=== PATIENT | female | born 1990 | race American Indian/Alaskan Native ===

== ENCOUNTER 2016-06-15 09:46 | Emergency (ER) | payer SELFPAY ==
[2016-06-15 10:04] VITALS: BP 142/97
[2016-06-15] MEDS ORDERED: VISTARIL PO ONE (10:54)
[2016-06-15] MEDS ORDERED: TYLENOL #3 PO ONE (12:16)
--- NOTE | 2016-06-15 12:55 | Emergency Department Report ---
Entered by KEILY RAMIREZ, acting as scribe for ZANDRA HOLLAND PA. ED Rash HPI - HPI Chief Complaint: Skin Rash Stated Complaint: PSORIASIS/ECZEMA FLARE UP/PAIN Duration: chronic, worsened yesterday Location: Head (scalp) Suspected Cause: Other (chronic condition, Hx of psoriasis and eczema) Rash Symptoms: Yes Itching, Yes Fever (last night, improved after Tylenol), Yes Malaise, No Facial Swelling, No Tongue/Oral Swelling, No Breathing Difficulties , No Choking Sensation, No Wheezing/Dyspnea, No Peeling, No Blistering, No Lightheaded, No Myalgias Severity: moderate Other History: 25 year old female with Hx of psoriasis and eczema presents to the ED for evaluation of rash to scalp for months that worsened yesterday after washing hair. She reports pain and open sores on scalp and notes rash is consistent with previous episodes of psoriasis exacerbation. Patient states she was previously using home remedy to wash hair that improved symptoms but ran out. Notes fever last night that improved after Tylenol, last dose was 08:30 this morning [employer]. Patient was last evaluated by a air quality instrument specialist 2 years ago ED Review of Systems ROS: Stated complaint: PSORIASIS/ECZEMA FLARE UP/PAIN Other details as noted in HPI Comment: All other systems reviewed and negative Constitutional: chills, fever ENT: other (rhinorrhea). denies: throat pain Respiratory: cough. denies: shortness of breath, wheezing Skin: rash (to scalp), lesions (open sores to scalp) ED Past Medical Hx - Past Medical History Previous Medical History?: Yes Hx Asthma: Yes Additional medical history: Psoriasis, Eczema - Surgical History Past Surgical History?: No - Social History Smoking Status: Current Every Day Smoker Substance Use Type: Alcohol, Marijuana, Prescribed - Medications Home Medications: Home Medications Medication Instructions Recorded Confirmed Last Taken Type Ibuprofen [Motrin] 800 mg PO Q8H PRN #60 tablet 08/20/14 Unknown Rx Prednisone [Prednisone 10 mg 10 mg PO .TAPER #1 tab.ds.pk 08/20/14 Unknown Rx (6-Day Pack, 21 Tabs)] Sulfamethoxazole/Trimethoprim 1 each PO BID #20 tablet 08/20/14 Unknown Rx [Bactrim Ds] traMADol [Ultram] 50 mg PO Q6HR PRN #14 tablet 08/20/14 Unknown Rx Promethazine [Phenergan TAB] 25 mg PO Q8HR PRN #10 tab 04/14/15 Unknown Rx predniSONE [Deltasone] 20 mg PO DAILY #18 tab 04/14/15 Unknown Rx Cephalexin [Keflex] 500 mg PO Q6HR #40 capsule 06/15/16 Unknown Rx hydrOXYzine PAMOATE [Vistaril] 25 mg PO Q6HR PRN #30 capsule 06/15/16 Unknown Rx traMADol [Ultram 50 MG tab] 50 mg PO Q6HR PRN #14 tablet 06/15/16 Unknown Rx Rash Exam - Exam General: Vital signs noted. No distress. Alert and acting appropriately. Right sided lymphadenopathy present. HEENT: No Periorbital Edema, No Perioral Edema, No Tongue Edema, No Uvular Edema , No Compromised Airway, No Drooling Lungs: Yes Good Air Exchange, Yes Ronchi, No Wheezes, No Stridor, No Cough, No Labored Respirations, No Retractions, No Use of Accessory Muscles Heart: Yes Regular, No Murmur Skin: Yes Other (open sores to scalp. Shiny, silvery plaques to bilateral axilla , groin, and nape of hairline) Other: Positive: Abdomen Normal, Neurologic Normal, Musculoskeletal Normal ED Course Vital Signs 06/15/16 10:01 Temperature 98.9 F Pulse Rate 84 Respiratory 20 Rate Blood Pressure 142/97 O2 Sat by Pulse 100 Oximetry - Reevaluation(s) Reevaluation #1: 06/15/16 12:52 Patient reports that she feels a little bit better after having the pain medication. Discussed the patient we will prepare her chart for discharge. Critical care attestation.: If time is entered above; I have spent that time in minutes in the direct care of this critically ill patient, excluding procedure time. ED Disposition Clinical Impression: Psoriasis, Cellulitis of head or scalp Disposition: DISCHARGED TO HOME OR SELFCARE Is pt being admited?: No Does the pt Need Aspirin: No Condition: Stable Instructions: Cellulitis (ED), Psoriasis (ED) Additional Instructions: Please take antibiotics and pain medication as prescribed. Please follow-up with the air quality instrument specialist. Prescriptions: Cephalexin [Keflex] 500 mg PO Q6HR #40 capsule hydrOXYzine PAMOATE [Vistaril] 25 mg PO Q6HR PRN #30 capsule PRN Reason: Itching traMADol [Ultram 50 MG tab] 50 mg PO Q6HR PRN #14 tablet PRN Reason: Pain Referrals: PRIMARY CARE,MD [Primary Care Provider] - 3-5 Days Forms: Work/School Release Form(ED) This documentation as recorded by the ASHLEY ndiaye REBEKAH,accurately reflects the service I personally performed and the decisions made by me,ZANDRA HOLLAND PA.
== END 2016-06-15 13:00 | disposition home or self-care (01) ==
LOC: ED 09:46
DX: L40.9 Psoriasis, unspecified (principal); L03.811 Cellulitis of head [any part, except face]; J45.909 Unspecified asthma, uncomplicated; F17.200 Nicotine dependence, unspecified, uncomplicated; F12.10 Cannabis abuse, uncomplicated; Z91.018 Allergy to other foods; Z88.6 Allergy status to analgesic agent
CPT/HCPCS: 99282; Q0177

== ENCOUNTER 2016-06-18 10:08 | Emergency (ER) | payer SELFPAY ==
[2016-06-18 13:39] LABS: Anion Gap 17 mmol/L; BUN/Creatinine Ratio 11.25; Blood Urea Nitrogen 9 mg/dL (7-17); Calcium 8.6 mg/dL (8.4-10.2); Carbon Dioxide 22 mmol/L (22-30); Chloride 107.9 mmol/L (98-107); Glucose 74 mg/dL (65-100); Potassium 3.8 mmol/L (3.6-5.0); Sodium 143 mmol/L (137-145)
[2016-06-18 13:41] LABS: Basophils % (Auto) 0.3 % (0.0-1.8); Eosinophils % (Auto) 2.4 % (0.0-4.3); Hematocrit 40.6 % (30.3-42.9); Hemoglobin 13.4 gm/dl (10.1-14.3); Mean Corpuscular HGB Conc 33 % (30-34); Mean Corpuscular Hemoglobin 30 pg (28-32); Mean Corpuscular Volume 92 fl (79-97); Platelet Count 252 K/mm3 (140-440); Red Blood Count 4.42 M/mm3 (3.65-5.03); Red Cell Distribution Width 12.9 % (13.2-15.2); White Blood Count 7.5 K/mm3 (4.5-11.0)
[2016-06-18] MEDS ORDERED: NORCO 5/325 PO ONE (14:56)
--- NOTE | 2016-06-18 15:49 | Emergency Department Report ---
Entered by KEILY RAMIREZ, acting as scribe for MILES METZGER PA. - General Chief complaint: Skin Rash Stated complaint: Open sores with drainage and associated pain to scalp Time Seen by Provider: 06/18/16 12:49 Source: patient Mode of arrival: Ambulatory Limitations: No Limitations - History of Present Illness Initial comments: 25 year old female with PMHx psoriasis presents to the ED for evaluation of open sores to scalp area and associated drainage and pain. Sores were exacerbated after washing her hair 4 days ago. She was seen in this ED 3 days ago for similar complaints and discharged with prescriptions for Cephalexin [ Keflex] 500 mg PO Q6HR #40 capsule, hydrOXYzine PAMOATE [Vistaril] 25 mg PO Q6HR PRN #30 capsule, and traMADol [Ultram 50 MG tab] 50 mg PO Q6HR PRN #14 tablet. She states she started her antibiotics yesterday. Denies fever, chills , shortness of breath, chest pain, abdominal pain, nausea and vomiting. MD complaint: other (open sores with drainage) -: unknown (chronic condition, became worse 4 days ago after washing hair) Location: head (scalp) Quality: constant Improves with: none Worsens with: palpation Context: other (chronic condition, worsened after washing hair) Associated symptoms: denies other symptoms (fever, chills, abdominal pain, nausea, and vomiting) Treatments Prior to Arrival: bandages, antibiotic (Cephalexin [Keflex] 500 mg PO ), prescription analgesic (traMADol [Ultram 50 MG tab] 50 mg PO), other (, hydrOXYzine PAMOATE [Vistaril] 25 mg PO ) - Related Data Previous Rx's Medication Instructions Recorded Last Taken Type Cephalexin [Keflex] 500 mg PO Q6HR #40 capsule 06/15/16 06/18/16 Rx hydrOXYzine PAMOATE [Vistaril] 25 mg PO Q6HR PRN #30 capsule 06/15/16 06/18/16 Rx traMADol [Ultram 50 MG tab] 50 mg PO Q6HR PRN #14 tablet 06/15/16 06/18/16 Rx Fluconazole [Diflucan TAB] 150 mg PO ONCE #8 tablet 06/18/16 Unknown Rx Sulfamethoxazole/Trimethoprim 1 each PO BID #20 tablet 06/18/16 Unknown Rx [Bactrim DS TAB] Allergies Allergy/AdvReac Type Severity Reaction Status Date / Time ibuprofen Allergy Swelling Verified 06/18/16 10:43 tomato Allergy Rash Verified 08/19/14 21:01 Abscess Boil HPI - HPI Chief Complaint: Headache Stated Complaint: HEADACHE Home Medications: Previous Rx's Medication Instructions Recorded Last Taken Type Cephalexin [Keflex] 500 mg PO Q6HR #40 capsule 06/15/16 06/18/16 Rx hydrOXYzine PAMOATE [Vistaril] 25 mg PO Q6HR PRN #30 capsule 06/15/16 06/18/16 Rx traMADol [Ultram 50 MG tab] 50 mg PO Q6HR PRN #14 tablet 06/15/16 06/18/16 Rx Fluconazole [Diflucan TAB] 150 mg PO ONCE #8 tablet 06/18/16 Unknown Rx Sulfamethoxazole/Trimethoprim 1 each PO BID #20 tablet 06/18/16 Unknown Rx [Bactrim DS TAB] Allergies/Adverse Reactions: Allergies Allergy/AdvReac Type Severity Reaction Status Date / Time ibuprofen Allergy Swelling Verified 06/18/16 10:43 tomato Allergy Rash Verified 08/19/14 21:01 ED Review of Systems Comment: All other systems reviewed and negative Constitutional: denies: chills, fever Respiratory: denies: shortness of breath Cardiovascular: denies: chest pain Gastrointestinal: denies: abdominal pain, nausea, vomiting Skin: lesions (painful open sores with drainage to scalp) Neurological: denies: headache ED Past Medical Hx - Past Medical History Previous Medical History?: Yes Hx Asthma: Yes Additional medical history: Psoriasis, Eczema - Surgical History Past Surgical History?: No - Social History Smoking Status: Current Every Day Smoker Substance Use Type: Marijuana, Prescribed - Medications Home Medications: Home Medications Medication Instructions Recorded Confirmed Last Taken Type Cephalexin [Keflex] 500 mg PO Q6HR #40 capsule 06/15/16 06/18/16 Rx hydrOXYzine PAMOATE [Vistaril] 25 mg PO Q6HR PRN #30 capsule 06/15/16 06/18/16 Rx traMADol [Ultram 50 MG tab] 50 mg PO Q6HR PRN #14 tablet 06/15/16 06/18/16 Rx Fluconazole [Diflucan TAB] 150 mg PO ONCE #8 tablet 06/18/16 Unknown Rx Sulfamethoxazole/Trimethoprim 1 each PO BID #20 tablet 06/18/16 Unknown Rx [Bactrim DS TAB] ED Physical Exam - General Limitations: No Limitations General appearance: other (: The patient is well-developed and well-nourished. Patient is in NAD. ) - Head Head exam: Present: other (encrusted scalp skin with yellow drainage. Scalp is tender to palpation.) - Neck Neck exam: Present: lymphadenopathy (right anterior cervical lymphadenopathy with tenderness) - Respiratory Respiratory exam: Present: normal lung sounds bilaterally. Absent: respiratory distress, wheezes, rales, rhonchi, chest wall tenderness - Cardiovascular Cardiovascular Exam: Present: regular rate, normal rhythm, normal heart sounds. Absent: systolic murmur, diastolic murmur, rubs, gallop - GI/Abdominal GI/Abdominal exam: Present: soft. Absent: distended, tenderness, guarding, rebound - Skin Skin exam: Present: other (encrusted scalp skin with yellow discharge. Scalp is tender to palpation. Shiny, silvery plaques to bilateral axilla and groin.) ED Course Vital Signs 06/18/16 10:39 Temperature 98.2 F Pulse Rate 78 Respiratory 18 Rate Blood Pressure 142/95 O2 Sat by Pulse 100 Oximetry ED Medical Decision Making - Lab Data Result diagrams: 06/18/16 13:10 06/18/16 13:10 Vital Signs 06/18/16 10:39 Temperature 98.2 F Pulse Rate 78 Respiratory 18 Rate Blood Pressure 142/95 O2 Sat by Pulse 100 Oximetry Lab Results 06/18/16 06/18/16 Range/Units 13:10 13:10 WBC 7.5 (4.5-11.0) K/mm3 RBC 4.42 (3.65-5.03) M/mm3 Hgb 13.4 (10.1-14.3) gm/dl Hct 40.6 (30.3-42.9) % MCV 92 (79-97) fl MCH 30 (28-32) pg MCHC 33 (30-34) % RDW 12.9 L (13.2-15.2) % Plt Count 252 (140-440) K/mm3 Lymph % (Auto) 25.1 (13.4-35.0) % [place] % (Auto) 12.2 H (0.0-7.3) % Eos % (Auto) 2.4 (0.0-4.3) % Baso % (Auto) 0.3 (0.0-1.8) % Lymph # 1.9 (1.2-5.4) K/mm3 [place] # 0.9 H (0.0-0.8) K/mm3 Eos # 0.2 (0.0-0.4) K/mm3 Baso # 0.0 (0.0-0.1) K/mm3 Seg Neutrophils % 60.0 (40.0-70.0) % Seg Neutrophils # 4.5 (1.8-7.7) K/mm3 Sodium 143 (137-145) mmol/L Potassium 3.8 (3.6-5.0) mmol/L Chloride 107.9 H (98-107) mmol/L Carbon Dioxide 22 (22-30) mmol/L Anion Gap 17 mmol/L BUN 9 (7-17) mg/dL Creatinine 0.8 (0.7-1.2) mg/dL Estimated GFR > 60 ml/min BUN/Creatinine Ratio 11.25 % Glucose 74 (65-100) mg/dL Calcium 8.6 (8.4-10.2) mg/dL - Medical Decision Making 25 year old female patient presents complaining of open sores with drainage and pain to scalp. Her lab results are within normal limits. Patient was given [place] for pain relief. Patient is in no acute distress at this time. ~She will be discharged home and is encouraged to follow up with a primary care provider. She is recommended to continue use of Keflex. She will be sent home on Bactrim and fluconazole and is encouraged to return to the emergency room for any worsening symptoms. Unable to prescribe topical fungal medication due to open sores. ED Disposition Clinical Impression: Psoriasis, Cellulitis of head or scalp, Tinea capitis Disposition: DISCHARGED TO HOME OR SELFCARE Is pt being admited?: No Does the pt Need Aspirin: No Condition: Stable Instructions: Cellulitis (ED), Psoriasis (ED), Tinea Capitis (ED) Additional Instructions: Follow-up with primary care provider. Return to the emergency department if symptoms worsen. Prescriptions: Fluconazole [Diflucan TAB] 150 mg PO ONCE #8 tablet Sulfamethoxazole/Trimethoprim [Bactrim DS TAB] 1 each PO BID #20 tablet Referrals: PRIMARY CARE, [Primary Care Provider] - 3-5 Days SHAE BRIONES MD [Staff Physician] - 3-5 Days RACHEL MOJICA MD [Staff Physician] - 3-5 Days Forms: Work/School Release Form(ED), Accompanied Note Time of Disposition: 15:27 This documentation as recorded by the scribeASHLEY REBEKAH,accurately reflects the service I personally performed and the decisions made by ,MILES METZGER, LUCA.
[2016-06-18 17:14] VITALS: BP 136/78
== END 2016-06-18 18:09 | disposition home or self-care (01) ==
LOC: ED 10:08
DX: L40.9 Psoriasis, unspecified (principal); B35.0 Tinea barbae and tinea capitis; L03.811 Cellulitis of head [any part, except face]; J45.909 Unspecified asthma, uncomplicated; F17.200 Nicotine dependence, unspecified, uncomplicated; F12.90 Cannabis use, unspecified, uncomplicated; Z88.6 Allergy status to analgesic agent; Z91.018 Allergy to other foods
CPT/HCPCS: 36415; 80048; 85025; 99283

== ENCOUNTER 2016-09-04 12:55 | Emergency (ER) | payer SELFPAY ==
[2016-09-04] MEDS ORDERED: TYLENOL ONE (16:38)
[2016-09-04] MEDS ORDERED: TYLENOL PO ONE (16:40)
--- NOTE | 2016-09-04 20:42 | Emergency Department Report ---
ED General Adult HPI - General Chief complaint: Dizziness Stated complaint: RASH Time Seen by Provider: 09/04/16 20:26 Source: patient Mode of arrival: Stretcher Limitations: No Limitations - History of Present Illness Initial comments: This is a 26-year-old female. She is previously unknown to me. She does not have a local primary care doctor. She reports a long history of eczema, asthma, epilepsy. She reports that she does not take any antiepileptic drugs. The patient presents to the ER with 2 complaints. The patient's first complaint is scalp pain, eczema rash, eczema break out. This has been going on for the past 3-4 days. She denies headache per se, but complains of profound scalp pain. The pain is sharp, and increases with palpation, decreases with rest. Patient reports a fever on September 01. Patient denies chest pain, neck pain, shortness of breath, abdominal pain, irritative and obstructive urinary symptoms. The patient indicates that she is not . The patient reports that she's had some episodes of nausea and vomiting. She indicates that she threw up twice yesterday, yellow. She reports that she threw up today 1. The patient also complains of dizziness. The dizziness is described as lightheadedness. Patient has not loss consciousness. There is no leg pain. There is no leg swelling. No recent trips greater than 4 hours. No recent hospital admissions. The patient does not take control tablets. The patient does admit to recreationally consuming cocaine and marijuana earlier on this week. These ingestions were for recreational purposes only, the patient is not homicidal or suicidal. She also admits to sporadic alcohol consumption. -: Gradual Location: head Severity scale (0 -10): 9 Quality: aching Consistency: constant Improves with: rest Worsens with: movement Associated Symptoms: fever/chills, headaches, loss of appetite, nausea/ vomiting. denies: confusion, chest pain, cough, diaphoresis - Related Data Previous Rx's Medication Instructions Recorded Last Taken Type Mineral Oil/Hydrophil Petrolat 50 gm TP BID #2 oint...g. 09/04/16 Unknown Rx [Aquaphor Healing Ointment] Triamcinolone Acetonide 60 ml TP BID #1 lotion 09/04/16 Unknown Rx [Triamcinolone 0.1% LOTION] hydrOXYzine PAMOATE [Vistaril] 25 mg PO Q6HR PRN #30 capsule 09/04/16 Unknown Rx Allergies Allergy/AdvReac Type Severity Reaction Status Date / Time ibuprofen Allergy Swelling Verified 06/18/16 10:43 tomato Allergy Rash Verified 08/19/14 21:01 ED Review of Systems ROS: Stated complaint: RASH Other details as noted in HPI Constitutional: fever Eyes: denies: eye discharge, vision change ENT: denies: epistaxis Respiratory: denies: cough Cardiovascular: denies: chest pain Gastrointestinal: nausea, vomiting Genitourinary: denies: dysuria Skin: rash Neurological: headache Psychiatric: denies: homicidal thoughts, suicidal thoughts ED Past Medical Hx - Past Medical History Previous Medical History?: Yes Hx Asthma: Yes Additional medical history: Psoriasis, Eczema - Surgical History Past Surgical History?: No - Social History Smoking Status: Current Every Day Smoker Substance Use Type: Marijuana - Medications Home Medications: Home Medications Medication Instructions Recorded Confirmed Last Taken Type Mineral Oil/Hydrophil Petrolat 50 gm TP BID #2 oint...g. 09/04/16 Unknown Rx [Aquaphor Healing Ointment] Triamcinolone Acetonide 60 ml TP BID #1 lotion 09/04/16 Unknown Rx [Triamcinolone 0.1% LOTION] hydrOXYzine PAMOATE [Vistaril] 25 mg PO Q6HR PRN #30 capsule 09/04/16 Unknown Rx ED Physical Exam - General Limitations: No Limitations General appearance: alert, in no apparent distress - Head Head exam: Present: atraumatic, normocephalic, other (patient has a mildly tender scalp. There is no streaking. Numerous crusted lesions are noted.) - Eye Eye exam: Present: normal appearance, PERRL, EOMI, other (visual acuity intact to finger counting, color perception, reading at a close distance). Absent: nystagmus - ENT ENT exam: Present: normal exam, normal orophraynx, mucous membranes moist, TM's normal bilaterally, normal external ear exam, other (there is no mastoid tenderness) - Neck Neck exam: Present: normal inspection, full ROM. Absent: tenderness, meningismus - Respiratory Respiratory exam: Present: normal lung sounds bilaterally. Absent: respiratory distress, wheezes, rales, rhonchi, stridor, chest wall tenderness, accessory muscle use, decreased breath sounds, prolonged expiratory - Cardiovascular Cardiovascular Exam: Present: regular rate, normal rhythm, normal heart sounds. Absent: bradycardia, tachycardia, irregular rhythm, systolic murmur, diastolic murmur, rubs, gallop - GI/Abdominal GI/Abdominal exam: Present: soft, normal bowel sounds. Absent: distended, tenderness, guarding, rebound, rigid, pulsatile mass - Extremities Exam Extremities exam: Present: normal inspection, full ROM, normal capillary refill. Absent: tenderness, pedal edema, joint swelling, calf tenderness - Back Exam Back exam: Present: normal inspection, full ROM. Absent: tenderness, CVA tenderness (R), CVA tenderness (L), muscle spasm, paraspinal tenderness, vertebral tenderness - Neurological Exam Neurological exam: Present: alert (patient is able to recall 3 words immediately , and in 5 minutes, and in 10 minutes.), oriented X3, normal gait (negative pronator drift. Normal [id number]. Negative Romberg examination. Normal finger to nose), other (Extraocular movements intact. Tongue midline. No facial droop. Facial sensation intact to light touch in the V1, V2, V3 distribution bilaterally. 5 and 5 strength in 4 extremities.. Sensation is intact to light touch in 4 extremities.). Absent: motor sensory deficit - Psychiatric Psychiatric exam: Present: normal affect, normal mood - Skin Skin exam: Present: warm, rash ED Course Vital Signs 09/04/16 09/04/16 13:18 16:40 Temperature 98.6 F 98.1 F Pulse Rate 96 H 76 Respiratory 16 18 Rate Blood Pressure 129/80 148/91 O2 Sat by Pulse 99 98 Oximetry - Reevaluation(s) Reevaluation #1: 09/04/16 20:44 differential diagnosis: Psoriasis, dehydration, , electrolyte derangement, polysubstance abuse Assessment and plan: 26-year-old female with 2 complaints. Her first complaint is her psoriasis. Does not appear to be superinfected. The patient will be started on steroid creams, and she'll be instructed to follow-up with a local consumer electronic retail specialist. The patient's dizziness is most likely secondary to her polysubstance use. She has a GCS of 15, with an NIH score of 0, walks with steady gait, she is clinically sober at this time, there are no pulmonary embolus or DVT risk factors, she is low risk by well's criteria. She reports a fever 3 days ago. She has no pulmonary symptoms. She has no urinary symptoms. Her abdomen is soft and benign, with no rebound, guarding or peritoneal signs. Furthermore, the patient is able to tolerate acetaminophen which is ordered prior to my evaluation. Unfortunately, the patient endorses an allergy to NSAIDs. Given that the patient endorses dizziness, I did not think narcotics or sedating medications are appropriate at this time. Reevaluation #2: 09/04/16 21:53 Reassessed. Laboratory studies unremarkable. Patient not . She walks with a steady gait. She is laughing, talking, smiling in animated fashion with a female template inspector who is with her. The patient does not appear to be in any distress whatsoever. The patient can follow-up as an outpatient primary care doctor and production welder. ED Medical Decision Making - Lab Data Result diagrams: 09/04/16 20:45 09/04/16 20:45 Vital Signs 09/04/16 09/04/16 13:18 16:40 Temperature 98.6 F 98.1 F Pulse Rate 96 H 76 Respiratory 16 18 Rate Blood Pressure 129/80 148/91 O2 Sat by Pulse 99 98 Oximetry - EKG Data -: EKG Interpreted by Me EKG shows normal: sinus rhythm, axis, intervals, QRS complexes, ST-T waves Critical care attestation.: If time is entered above; I have spent that time in minutes in the direct care of this critically ill patient, excluding procedure time. ED Disposition Clinical Impression: Rash, History of cocaine use, History of marijuana use Disposition: DISCHARGED TO HOME OR SELFCARE Is pt being admited?: No Does the pt Need Aspirin: No Condition: Stable Instructions: Psoriasis (ED), Polysubstance Abuse (ED) Additional Instructions: Take the medications as directed. Follow-up with the consumer electronic retail specialist within the next [address] Mojica is a local consumer electronic retail specialist. Avoid consumption of cocaine, marijuana, these are not good for your health. He should especially avoid combination of marijuana, cocaine and alcohol, as the interaction can be fatal. Take acetaminophen every 4-6 hours as needed for pain. Return to the ER right away with worsening pain, intractable nausea or vomiting, inability to tolerate liquid feeds, confusion, change in mental status , chest pain, shortness of breath. Dr. Kurtz is a local primary care doctor. Follow-up with the primary care doctor within the next month. Prescriptions: hydrOXYzine PAMOATE [Vistaril] 25 mg PO Q6HR PRN #30 capsule PRN Reason: Itching Mineral Oil/Hydrophil Petrolat [Aquaphor Healing Ointment] 50 gm TP BID #2 oint...g. Triamcinolone Acetonide [Triamcinolone 0.1% LOTION] 60 ml TP BID #1 lotion Referrals: PRIMARY CAREMD [Primary Care Provider] - 3-5 Days RACHEL MOJICA MD [Staff Physician] - 3-5 Days SANDRA KURTZ MD [Staff Physician] - 3-5 Days
[2016-09-04 21:10] LABS: Hematocrit 44.2 % (30.3-42.9); Hemoglobin 14.5 gm/dl (10.1-14.3); Mean Corpuscular HGB Conc 33 % (30-34); Mean Corpuscular Hemoglobin 30 pg (28-32); Mean Corpuscular Volume 91 fl (79-97); Platelet Count 422 K/mm3 (140-440); Red Blood Count 4.84 M/mm3 (3.65-5.03); Red Cell Distribution Width 13.1 % (13.2-15.2); White Blood Count 7.6 K/mm3 (4.5-11.0)
[2016-09-04 21:24] LABS: Anion Gap 21 mmol/L; BUN/Creatinine Ratio 17.14; Blood Urea Nitrogen 12 mg/dL (7-17); Calcium 8.8 mg/dL (8.4-10.2); Carbon Dioxide 21 mmol/L (22-30); Chloride 97.8 mmol/L (98-107); Creatine Kinase 98 units/L (30-135); Glucose 81 mg/dL (65-100); Potassium 3.9 mmol/L (3.6-5.0); Sodium 136 mmol/L (137-145)
[2016-09-04 21:25] LABS: Urine Drugs of Abuse Note Disclamer
[2016-09-04 21:35] LABS: Bilirubin,Urine SM (Negative); Blood,Urine NEG (Negative); Ketones,Urine TR mg/dL (Negative); Leukocyte Esterase,Urine NEG (Negative); Mucus,Urine 1+ /HPF; Nitrite,Urine NEG (Negative)
[2016-09-04 22:39] VITALS: BP 139/71
== END 2016-09-04 22:30 | disposition home or self-care (01) ==
LOC: ED 12:55
DX: R21 Rash and other nonspecific skin eruption (principal); F14.10 Cocaine abuse, uncomplicated; F12.10 Cannabis abuse, uncomplicated; J45.909 Unspecified asthma, uncomplicated; F17.200 Nicotine dependence, unspecified, uncomplicated
CPT/HCPCS: 36415; 80048; 80307; 81001; 81025; 82550; 83735; 85027; 93005; 93010; 99283